=== PATIENT | female | born 1980 | race Two or more races ===

== ENCOUNTER 2025-04-22 11:36 | Day surgery (SDC) | payer OTHER ==
[2025-04-22] MEDS: IRON SUCROSE INJECTION 200 MG in SODIUM CHLORIDE 100 ML IVPB ONE (12:19)
[2025-04-22 13:32] VITALS: RESP 18; TEMP 98.4
[2025-04-22 13:35] VITALS: BP 118/77; PULSE 74
== END 2025-04-22 13:00 | disposition home or self-care (01) ==
LOC: JINFUSION 11:36 → J7W 11:41 → JINFUSION 13:00
PROVIDERS: ATTEND Internal Medicine
PROC: 3E033GC Introduction of Other Therapeutic Substance into Peripheral Vein, Percutaneous Approach (ICD-10-PCS; principal; 2025-04-22)
DX: D50.9 Iron deficiency anemia, unspecified (principal)
CPT/HCPCS: 96365; J1756